=== PATIENT | female | born 1940 | race Caucasian/White ===

== ENCOUNTER → 2017-02-13 | Outpatient (CLI) | payer OTHER | LOC: CIMAGING 08:57 | PROVIDERS: ATTEND Internal Medicine | DX: Z12.31 Encounter for screening mammogram for malignant neoplasm of breast (principal) | CPT/HCPCS: G0202 ==

== ENCOUNTER → 2017-02-20 | Outpatient (CLI) | payer OTHER | LOC: CIMAGING 13:13 | DX: I71.6 Thoracoabdominal aortic aneurysm, without rupture (principal); Z95.828 Presence of other vascular implants and grafts | CPT/HCPCS: 71250-PO; 74176-PO ==

== ENCOUNTER → 2017-03-19 | Outpatient (CLI) | payer OTHER | LOC: CIMAGING 11:33 | PROVIDERS: ATTEND Internal Medicine | DX: R05 Cough (principal) | CPT/HCPCS: 71020; G0463 ==

== ENCOUNTER → 2017-03-25 | Outpatient (CLI) | payer OTHER | LOC: CIMAGING 16:38 | PROVIDERS: ATTEND Internal Medicine | DX: R05 Cough (principal); Z95.828 Presence of other vascular implants and grafts | CPT/HCPCS: 71020-PO; 80053-PO; 85025-PO; G0463-PO ==

== ENCOUNTER → 2017-06-05 | Outpatient (CLI) | payer OTHER | LOC: BHFA 09:30 | PROVIDERS: ATTEND Internal Medicine Cardiovascular Disease | DX: J44.9 Chronic obstructive pulmonary disease, unspecified (principal) ==

== ENCOUNTER → 2017-11-03 | Outpatient (CLI) | payer OTHER | LOC: CIMAGING 11:33 | PROVIDERS: ATTEND Internal Medicine | DX: J98.4 Other disorders of lung (principal); R53.1 Weakness; Z95.828 Presence of other vascular implants and grafts | CPT/HCPCS: 71046-PO ==

== ENCOUNTER → 2017-11-18 | Outpatient (CLI) | payer OTHER | LOC: CIMAGING 12:06 | PROVIDERS: ATTEND Internal Medicine | DX: N28.9 Disorder of kidney and ureter, unspecified (principal); N85.9 Noninflammatory disorder of uterus, unspecified | CPT/HCPCS: 76770-PO ==

== ENCOUNTER → 2017-12-10 | Outpatient (CLI) | payer OTHER | LOC: CIMAGING 13:23 | PROVIDERS: ATTEND Internal Medicine | DX: S80.12XA Contusion of left lower leg, initial encounter (principal); M53.3 Sacrococcygeal disorders, not elsewhere classified | CPT/HCPCS: 72192-PO; 73590-PO ==

== ENCOUNTER → 2018-06-09 | Outpatient (CLI) | payer OTHER | LOC: CIMAGING 10:28 | PROVIDERS: ATTEND Surgery | DX: K43.9 Ventral hernia without obstruction or gangrene (principal); I77.810 Thoracic aortic ectasia; Z95.828 Presence of other vascular implants and grafts | CPT/HCPCS: 74176-PO ==

== ENCOUNTER 2018-07-21 07:44 | Inpatient (IN) | payer OTHER ==
--- NOTE | 2018-07-20 10:23 | GHP ---
DATE OF ADMISSION: 07/21/2018 Paz is a 77-year-old female, well known to us after suffering wound infections after a thoracic a ortic aneurysm repair at an outside hospital. She had multiple surgeries with wound VACs and healing difficulties, and now she presents with 2 abdominal wall hernias. She has a small, but bothersome h ernia in her epigastrium, and a larger left lower quadrant hernia containing bowel, which is reducibl e. CT scan show both hernias as described above. Images were personally reviewed. The patient also says she has balance difficulties with a very weak core. She has been taking yoga f or 6 years to try to correct this. She denies problems with nausea, vomiting, diarrhea, constipation , or chronic cough. PAST MEDICAL HISTORY: Includes abdominal wall abscess, status post incision and drainage with multip le surgeries requiring wound VACs as described above, thoracic aneurysm repair, central hearing loss, COPD, depression, hyperparathyroidism, hypertension, kidney disease. MEDICATIONS: Include Advair Diskus, amlodipine, Anoro Ellipta inhaler, aspirin, atorvastatin, fluoxe willian, fluticasone, ipratropium, albuterol, Lasix, topical Lidoderm, metoprolol, Prilosec, tramadol, v itamin D3. ALLERGIES: Includes narcotics and tetanus vaccine. FAMILY MEDICAL HISTORY: Includes coronary artery disease. SOCIAL HISTORY: The patient drinks alcohol on occasion. Denies tobacco use. PHYSICAL EXAM: GENERAL: Reveals an alert and oriented, well-developed, well-nourished 77-year-old f emale in no acute distress. HEENT: Normocephalic, atraumatic. CHEST: Clear to auscultation bilate rally without wheezes, rhonchi, or rales. CARDIAC: Regular rate and rhythm without murmurs. ABDOME N: Soft with tender small hernia in the epigastrium. A large left lower quadrant hernia just below the level of the umbilicus. Both are soft. No overlying skin redness. Multiple well-healed, but di mpled and contracted scars. GENITAL: Exam deferred. EXTREMITIES: Warm without edema. NEURO: Sanjeev ssly intact. SKIN: Warm and dry. IMPRESSION: This is a 77-year-old female with a history of abdominal surgery and wound infections, n ow with 2 ventral hernias. PLAN: Plan is to proceed with open ventral hernia repair x2 with possible use of mesh. The more con cerning hernia for us is in the left lower quadrant as it contains bowel. The more bothersome hernia for Paz is in her epigastrium as it gives her pain. She asks us if hernia repair will help to s trengthen her core. This we cannot guarantee. Limitations were discussed. Hernia repair is unlikel y to help with her balance issues. /[id number]/MODL
[2018-07-21] MEDS ORDERED: ceFAZolin 2 GM/DEXTROSE 100 ML IV ONE (07:56)
[2018-07-21] MEDS ORDERED: LR 1,000 ML IV ONE (07:57)
[2018-07-21] MEDS ORDERED: NS 1,000 ML IV ONE (08:02)
[2018-07-21] MEDS ORDERED: BUPIVACAINE 0.5% 30 ML SDV ONE (08:23)
--- NOTE | 2018-07-21 08:24 | PDHPUP ---
History & Physical Update H&P update statement: This history and physical update is based on an assessment of the patient which was completed after admission or registration (within 24 hours), but prior to the surgery/procedure. H&P update: H&P reviewed & patient examined, no change in patient's condition since H&P completed
[2018-07-21] MEDS ORDERED: MIDAZOLAM 2 MG/2 ML VIAL IVP ONE (09:19)
--- NOTE | 2018-07-21 09:19 | PDANEPAE ---
ANE History of Present Illness here for open ventral hernia repair ANE Past Medical History - Cardiovascular History Hx Hypertension: Yes Hx Arrhythmias: No Hx Chest Pain: No Hx Coronary Artery / Peripheral Vascular Disease: No Hx CHF / Valvular Disease: No Hx Palpitations: No - Pulmonary History Hx COPD: Yes Hx Asthma/Reactive Airway Disease: No Hx Recent Upper Respiratory Infection: No Hx Oxygen in Use at Home: No Hx Sleep Apnea: No Sleep Apnea Screening Result - Last Documented: Negative Pulmonary History Comment: MILD COPD - Neurologic History Hx Cerebrovascular Accident: No Hx Seizures: No Hx Dementia: No - Endocrine History Hx Diabetes: No - Renal History Hx Renal Disorders: Yes Renal History Comment: CKD. ONE KIDNEY R - Liver History Hx Hepatic Disorders: No - Neurological & Psychiatric Hx Hx Neurological and Psychiatric Disorders: No Neurological / Psychiatric History Comment: ANXIETY. DEPRESSION - Cancer History Hx Cancer: Yes Cancer History Comment: BASAL & SQUAMOUS - Congenital Disorder History Hx Congenital Disorders: No - GI History Hx Gastrointestinal Disorders: Yes Gastrointestinal History Comment: GERD - Other Health History Other Health History: NEG - Chronic Pain History Chronic Pain: No - Surgical History Prior Surgeries: THORACIC AORTIC ANEURYSM REPAIR. POST OP INF - RIB RESECTIONS - REQUIRING X9 PROCEDURES TO I&D AND IMPLANT WOUND VACS. L SHOULDER SURGERY. C SECTION X2 ANE Review of Systems Review of systems is: negative Review of Systems: - Exercise capacity Exercise capacity: >=4 METS METS (RN): 4 METS ANE Patient History - Allergies Allergies/Adverse Reactions: Iodinated Contrast- Oral and IV Dye Allergy (Verified 07/21/18 08:17) "I only have 1 kidney" NARCOTICS Allergy (Uncoded 08/12/12 15:06) Vomiting - Home Medications Home medications: home medication list seen and reviewed Home Medications: Metoprolol Tartrate [Lopressor 25 mg (RX)] 12.5 mg PO BID 11/04/11 [Last Taken 07/21/18 05:30] Atorvastatin Calcium 06/07/16 [Last Taken 07/20/18] Amlodipine Besylate 07/09/18 [Last Taken 07/20/18] Aspirin 07/09/18 [Last Taken 1 Week Ago ~07/14/18] FLUoxetine 07/09/18 [Last Taken 07/21/18 05:30] Vit D3-Vit K/Berberine/Hops 07/09/18 [Last Taken 1 Week Ago ~07/14/18] Mucinex 07/21/18 [Last Taken 07/20/18] - NPO status NPO Status: no food or drink >8 hours NPO Since - Liquids (Date): 07/21/18 NPO Since - Liquids (Time): 06:00 NPO Since - Solids (Date): 07/20/18 NPO Since - Solids (Time): 19:00 - Smoking Hx Smoking Status: Current every day smoker ANE Labs/Vital Signs - Vital Signs Vital Signs: reviewed preoperatively; see RN documention for details Blood Pressure: 134/66 Heart Rate: 68 Respiratory Rate: 18 O2 Sat (%): 98 Height: 152.4 cm Weight: 64.864 kg ANE Physical Exam - Airway Neck exam: FROM Mallampati Score: Class 1 - Pulmonary Pulmonary: no respiratory distress - Cardiovascular Cardiovascular: regular rate and rhythym - ASA Status ASA Status: III ANE Anesthesia Plan Anesthesia Plan: general endotracheal anesthesia, epidural
[2018-07-21] MEDS ORDERED: MIDAZOLAM 2 MG/2 ML VIAL ONE (09:20)
[2018-07-21] MEDS ORDERED: PROPOFOL 200 MG/20 ML VIAL ONE (09:29)
--- NOTE | 2018-07-21 10:13 | PDANEPAE ---
ANE Past Medical History - Cardiovascular History Hx Hypertension: Yes Hx Arrhythmias: No Hx Chest Pain: No Hx Coronary Artery / Peripheral Vascular Disease: No Hx CHF / Valvular Disease: No Hx Palpitations: No - Pulmonary History Hx COPD: Yes Hx Asthma/Reactive Airway Disease: No Hx Recent Upper Respiratory Infection: No Hx Oxygen in Use at Home: No Hx Sleep Apnea: No Sleep Apnea Screening Result - Last Documented: Negative Pulmonary History Comment: MILD COPD - Neurologic History Hx Cerebrovascular Accident: No Hx Seizures: No Hx Dementia: No - Endocrine History Hx Diabetes: No - Renal History Hx Renal Disorders: Yes Renal History Comment: CKD. ONE KIDNEY R - Liver History Hx Hepatic Disorders: No - Neurological & Psychiatric Hx Hx Neurological and Psychiatric Disorders: No Neurological / Psychiatric History Comment: ANXIETY. DEPRESSION - Cancer History Hx Cancer: Yes Cancer History Comment: BASAL & SQUAMOUS - Congenital Disorder History Hx Congenital Disorders: No - GI History Hx Gastrointestinal Disorders: Yes Gastrointestinal History Comment: GERD - Other Health History Other Health History: NEG - Chronic Pain History Chronic Pain: No - Surgical History Prior Surgeries: THORACIC AORTIC ANEURYSM REPAIR. POST OP INF - RIB RESECTIONS - REQUIRING X9 PROCEDURES TO I&D AND IMPLANT WOUND VACS. L SHOULDER SURGERY. C SECTION X2 ANE Review of Systems Review of Systems: - Exercise capacity METS (RN): 4 METS ANE Patient History - Allergies Allergies/Adverse Reactions: Iodinated Contrast- Oral and IV Dye Allergy (Verified 07/21/18 08:17) "I only have 1 kidney" NARCOTICS Allergy (Uncoded 08/12/12 15:06) Vomiting - Home Medications Home Medications: Metoprolol Tartrate [Lopressor 25 mg (RX)] 12.5 mg PO BID 11/04/11 [Last Taken 07/21/18 05:30] Atorvastatin Calcium 06/07/16 [Last Taken 07/20/18] Amlodipine Besylate 07/09/18 [Last Taken 07/20/18] Aspirin 07/09/18 [Last Taken 1 Week Ago ~07/14/18] FLUoxetine 07/09/18 [Last Taken 07/21/18 05:30] Vit D3-Vit K/Berberine/Hops 07/09/18 [Last Taken 1 Week Ago ~07/14/18] Mucinex 07/21/18 [Last Taken 07/20/18] - NPO status NPO Since - Liquids (Date): 07/21/18 NPO Since - Liquids (Time): 06:00 NPO Since - Solids (Date): 07/20/18 NPO Since - Solids (Time): 19:00 - Smoking Hx Smoking Status: Current every day smoker ANE Labs/Vital Signs - Vital Signs Blood Pressure: 134/66 Heart Rate: 68 Respiratory Rate: 18 O2 Sat (%): 98 Height: 152.4 cm Weight: 64.864 kg
[2018-07-21] MEDS ORDERED: DEXAMETHASONE 4 MG/ML VIAL ONE ×2 (10:24→12:47)
[2018-07-21] MEDS ORDERED: ONDANSETRON 4 MG/2 ML VIAL ONE ×2 (10:24→12:33)
[2018-07-21] MEDS ORDERED: BUPIVACAINE 0.25% 30 ML SDV ONE (10:33)
[2018-07-21] MEDS ORDERED: fentaNYL 100 MCG/2 ML INJ ONE (10:43)
[2018-07-21] MEDS ORDERED: fentaNYL 100 MCG/2 ML INJ IVP PRN (10:46)
[2018-07-21] MEDS ORDERED: ONDANSETRON 4 MG/2 ML VIAL IVP PRN (10:46)
[2018-07-21] MEDS ORDERED: NS 500 ML IV PRN (10:46)
[2018-07-21] MEDS ORDERED: NALOXONE HCL 0.4 MG/ML INJ IVP PRN ×2 (10:46→11:30)
[2018-07-21] MEDS ORDERED: LABETALOL HCL 5 MG/ML 20 ML MDV IVP PRN (10:46)
[2018-07-21] MEDS ORDERED: ALBUTEROL 3 ML DEYVIAL IH PRN (10:46)
[2018-07-21] MEDS ORDERED: LR 500 ML IV PRN (10:46)
[2018-07-21] MEDS ORDERED: DEXAMETHASONE 4 MG/ML VIAL IVP PRN (10:46)
[2018-07-21] MEDS ORDERED: HYDROmorphONE/DILAUDID 2 MG/ML INJ IVP PRN (10:46)
[2018-07-21] MEDS ORDERED: SUGAMMADEX SODIUM 200 MG/2 ML VIAL IVP ONE (11:40)
[2018-07-21] MEDS: fentaNYL 2MCG/ML/BUP 0.1% RTU 100 ML EP SCH (12:16)
--- NOTE | 2018-07-21 13:56 | POSTOPPROG ---
Post Op Note Date of Operation: 07/21/18 Surgeon: Kali Jackman Supervisor Computer Operations: Shayy Weston Anesthesiologist: Tio Temple Anesthesia: Epidural, GET(General Endotracheal) Pre-op Diagnosis: VH x 2 Post-op Diagnosis: same, with generally attenuated fascia Procedure: epigastric and LLQ VH repairs c mesh Findings: 12 cm LLQ defect, 8 cm epigastric defect Inf/Abcess present in the surg proc area at time of surgery?: No EBL: Minimal Complications: none Drains: Porfirio Wright (x2) Specimen(s): hernia sac
--- NOTE | 2018-07-21 16:14 | POSTANESTH ---
Post Anesthetic Evaluation Cardiovascular Status: Normal, Stable Respiratory Status: Normal, Stable Level of Consciousness/Mental Status: Can Participate in Eval Pain Control: Adequate, Prn Tx Ordered Nausea/Vomiting Control: Adequate, Prn Tx Ordered Complications Possibly Related to Anesthesia: None Noted
--- NOTE | 2018-07-21 17:18 | PDMN ---
Medical Necessity Medical necessity: Pt meets IP criteria as of 07/21/2018 per and [facility] [place] [id number] ( Hernia Repair); est los > 2 mn s/p open ventral hernia repair x 2 in a pt with hx of multiple surgeries requiring wound vac d/t healing difficulties; comorbid advanced age, COPD, thoracic aneurysm repair, depression, HTN, and kidney disease.
[2018-07-21] MEDS: ONDANSETRON 4 MG/2 ML VIAL IVP PRN (21:07)
[2018-07-22] MEDS: fentaNYL 2MCG/ML/BUP 0.1% RTU 100 ML EP SCH (03:03)
[2018-07-22] MEDS: DC NARCS MISC SCH (08:40)
[2018-07-22] MEDS: REGARDING ANTICOAG MISC SCH (08:41)
--- NOTE | 2018-07-22 10:06 | SOAPPROG ---
SOAP Progress Note Assessment/Plan: Assessment/Plan: 77 Y F s/p ventral hernia repairs x 2. POD#1. Thoracic epidural working well. Would keep it another day but defer to anesthesia. Patient has narcotic intolerance. Will be on tylenol alone after epiduural removal. Single kidney. Cr 1.6 today. Slight elevation from baseline of 1.3-1.5. Will add low volume IVF back and repeat tomorrow. Regular diet. D/c mreino. OOB. PT/OT. Dispo: pending. likely in next 1-2 days. S: no pain. says she hasn't been oob. had nausea yesterday but better today. "I' m doing 100% better than I thought I would from this surgery." O: alert, nad ctab rrr abd soft, wounds well dressed. 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
[2018-07-22] MEDS: NS 1,000 ML IV SCH (10:37)
--- NOTE | 2018-07-22 12:30 | PDPAINCON ---
Pain Management Consultation Patient referred by : Gasper - Subjective Pain is: under control Side effects include: nausea/vomiting Activity: out of bed with assistance - Objective Technique: continuous epidural Site: thoracic Continuous infusion: bupivicaine (+ fentanyl) Catheter site: clean, dry, intact, no erythema/edema/exudate Sensory and motor exam: dermatomal level (Narrow band T6-8 bilaterally) Vital signs: stable - Assessment/Plan Assessment/Plan: change infusion rate (Increased rate to 8 ml/hr with 2 ml bolus , 15 min lockout, max 2 bolus/hr. This will hopefully increase dermatome band and provide better pain control.)
[2018-07-22] MEDS ORDERED: ALBUTEROL 60 PUFFS/8 GM MDI IH PRN (12:39)
[2018-07-22] MEDS: ONDANSETRON 4 MG/2 ML VIAL IVP PRN (14:30)
--- NOTE | 2018-07-22 16:13 | ASMTCMCOM ---
CM Note CM Note Notes: Pt admitted for scheduled hernia surgery, pt normally independent and goes to yoga. She does have some balance issues at baseline. Pt lives at home w/her , PT/OT to eval. DC Plan: TBD Date Signed: 07/22/2018 04:12 PM Electronically Signed By:Dana Cr RN
[2018-07-22] MEDS: guaiFENesin 600 MG TAB.ER PO SCH ×2 (16:47→21:17)
[2018-07-22] MEDS: FLUoxetine 20 MG CAP PO SCH (16:47)
[2018-07-22] MEDS: CHOLECALCIFEROL VIT D3 1,000 UNITS TAB PO SCH (16:47)
[2018-07-22] MEDS: METOPROLOL TARTRATE 25 MG TAB PO SCH ×2 (16:48→21:17)
[2018-07-22] MEDS ORDERED: PROMETHAZINE HCL 25 MG/ML INJ ONE (17:08)
[2018-07-22] MEDS: ATORVASTATIN CALCIUM 20 MG TAB PO SCH (21:17)
[2018-07-23] MEDS: ACETAMINOPHEN 325 MG TAB PO PRN ×2 (01:42→18:47)
--- NOTE | 2018-07-23 05:22 | GOP ---
DATE OF OPERATION: 07/21/2018 SURGEON: Kali Jackman MD BACKREST ASSEMBLER: TATYANA Dc ANESTHESIOLOGIST: Dr. Jessica South PREOPERATIVE DIAGNOSIS: Symptomatic ventral hernias x2. POSTOPERATIVE DIAGNOSIS: Symptomatic ventral hernias x2. PROCEDURE PERFORMED: Ventral hernia repair x2 with mesh. FINDINGS: The patient was found have a large left lower quadrant ventral hernia defect with markedly attenuated fascia. This measured approximately 8 cm in diameter. Second defect was in the right up per quadrant and measured 5 cm in diameter. ESTIMATED BLOOD LOSS: Less than 25 cc. DESCRIPTION OF PROCEDURE: The patient was taken to the operating room, where she received satisfacto ry general endotracheal anesthesia. She was placed in supine position, prepped and draped in usual s terile fashion. Two separate transverse incision was made over the hernia defects. Dissection extended down carefull y through the subcutaneous tissue. The hernia sacs were dissected free from surrounding subcutaneous tissue and dissected back down to the fascial level. The sacs were opened and the contents were red uced. In the right upper quadrant hernia defect, the abdomen was not entered, but a subfascial space was created as was done on the lower abdominal incision. Covidien ProGrip composite mesh was placed subfascially and anchored around the periphery of both lesions with 0 Ethibond mattress sutures. Th e defect, itself, was then closed directly with 0 Ethibond [id number] sutures. Wounds were infi ltrated with 0.5% Marcaine. Both wounds were drained with 15 round silicone COOKIE drains, which were se cured to the skin with 3-0 silk sutures. Wounds were infiltrated with Marcaine and closed in layers using 2-0 Vicryl for the subcutaneous tissue and skin miriam for the skin. She tolerated the proced ure quite well. COMPLICATIONS: No complications /[id number]/MODL
[2018-07-23] MEDS: NS 1,000 ML IV SCH ×2 (05:57→18:00)
[2018-07-23] MEDS: guaiFENesin 600 MG TAB.ER PO SCH ×2 (07:36→20:27)
[2018-07-23] MEDS: CHOLECALCIFEROL VIT D3 1,000 UNITS TAB PO SCH (07:36)
[2018-07-23] MEDS: METOPROLOL TARTRATE 25 MG TAB PO SCH ×2 (07:36→20:27)
[2018-07-23] MEDS: BUPIVACAINE 0.5% EP SCH ×2 (07:37→23:17)
[2018-07-23] MEDS: FLUoxetine 20 MG CAP PO SCH (07:37)
[2018-07-23] MEDS: NS EP SCH ×2 (07:37→23:17)
[2018-07-23] MEDS: REGARDING ANTICOAG MISC SCH (10:36)
[2018-07-23] MEDS: DC NARCS MISC SCH (10:36)
--- NOTE | 2018-07-23 11:36 | SOAPPROG ---
SOAP Progress Note Assessment/Plan: Assessment: 77 Y F s/p ventral hernia repairs x 2. POD#2 Single kidney: Cr continues to be above baseline at 1.6. Increase fluids to 100cc/hr. Increase oral fluid intake. Thoracic epidural for pain control. Keep in one more day, as pt can only take Tylenol after it is pulled. Continue PT/OT and ambulation. Pull R abdomen COOKIE drain. S: doing much better than yesterday. No vomiting since yesterday. Tolerating a regular diet and passing gas. No BM yet. Pain well controlled with epidural , although she does still endorse some pain. O: Alert Afebrile VSS RRR CTAB, no increased WOB Abdomen: soft, appropriately ttp, R COOKIE drain with no drainage, L COOKIE with minimal serosang drainage, normoactive BS, incisions well dressed. 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
--- NOTE | 2018-07-23 13:26 | PDPAINCON ---
Pain Management Consultation Patient referred by : Gasper - Subjective Pain at rest (/10): 2 Pain with activity (/10): 8 Pain is: low, well controlled (Except with coughing) Side effects include: nausea (Pt had severe nausea yesterday. Much better today since Fentanyl was removed from epidural infusion.) Activity: able to ambulate - Objective Technique: continuous epidural Continuous infusion: bupivicaine Continuous rate (ml/hr): 6 Bolus (ml): 0 Catheter site: clean, dry, intact, no erythema/edema/exudate Sensory and motor exam: consistent with block Vital signs: stable - Assessment/Plan Assessment/Plan: change infusion rate Additional comments: Added 2mL bolus q 10 min so pt can assist herself with controlling pain with cough and motion. Pain very well controlled at rest. Anticipating a trial of turning the infusion off this weekend to assess pain level with no epidural.
--- NOTE | 2018-07-23 15:04 | ASMTCMCOM ---
CM Note CM Note Notes: Reviewed therapies, pt cleared for home by PT and OT. Anticipate she will dc w/support of when medically stable. CM available for any changes. DC Plan: Independent Date Signed: 07/23/2018 03:03 PM Electronically Signed By:Dana Cr RN
[2018-07-23] MEDS: ALBUTEROL 3 ML DEYVIAL IH PRN ×2 (16:38→20:11)
[2018-07-23] MEDS: ATORVASTATIN CALCIUM 20 MG TAB PO SCH (20:27)
[2018-07-23] MEDS: FLUTICASONE IH SCH (21:14)
[2018-07-23] MEDS: SALMETEROL IH SCH (21:14)
[2018-07-24] MEDS: NS 1,000 ML IV SCH ×2 (03:59→13:58)
[2018-07-24] MEDS: METOPROLOL TARTRATE 25 MG TAB PO SCH ×2 (08:18→21:09)
[2018-07-24] MEDS: FLUoxetine 20 MG CAP PO SCH (08:18)
[2018-07-24] MEDS: CHOLECALCIFEROL VIT D3 1,000 UNITS TAB PO SCH (08:18)
[2018-07-24] MEDS: guaiFENesin 600 MG TAB.ER PO SCH ×2 (08:18→21:09)
[2018-07-24] MEDS: ACETAMINOPHEN 325 MG TAB PO PRN (08:26)
[2018-07-24] MEDS ORDERED: HYDROmorphONE/DILAUDID 1 MG/ML INJ IVP PRN (09:03)
--- NOTE | 2018-07-24 09:03 | SOAPPROG ---
SOAP Progress Note Assessment/Plan: Assessment: 77 Y F s/p ventral hernia repairs x 2. POD#2 Single kidney: Cr continues to be above baseline at 1.6. Increase fluids to 100cc/hr. Increase oral fluid intake. Thoracic epidural for pain control. Pull today. Will order iv Dilaudid for pain control. Continue PT/OT and ambulation. Continue COOKIE drains Dispo pending clinical course. Likely over the weekend. S: Continuing to improve. Had BM and passing gas. Incision sites tender. O: Alert Afebrile VSS RRR CTAB, no increased WOB Abdomen: soft, appropriately ttp, COOKIE drains with minimal serosang drainage, normoactive BS, incisions well dressed. 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
[2018-07-24] MEDS: REGARDING ANTICOAG MISC SCH (11:31)
[2018-07-24] MEDS: DC NARCS MISC SCH (11:31)
--- NOTE | 2018-07-24 12:23 | PDPAINCON ---
Pain Management Consultation Patient referred by : Gasper - Subjective Pain at rest (/10): 0 Pain with activity (/10): 4 Pain is: low, well controlled Activity: able to ambulate, out of bed with assistance - Objective Technique: continuous epidural Site: thoracic Continuous infusion: bupivicaine Continuous rate (ml/hr): 6 Bolus (ml): 2 Lockout interval (mins): 10 Catheter site: clean, dry, intact (some dried sanguinous fluid under dressing, probably from cath insertion) Sensory and motor exam: consistent with block (T9-T12 - some of the skin incisions are above level of the block, but pain still minimal per pt. ) - Assessment/Plan Assessment/Plan: other (Will hold infusion tomorrow morning at 8 AM for a trial of pain management without epidural. If successful will pull epidural catheter tomorrow late morning - early afternoon.)
[2018-07-24] MEDS: BUPIVACAINE 0.5% EP SCH (12:40)
[2018-07-24] MEDS: NS EP SCH (12:40)
[2018-07-24] MEDS: ALBUTEROL 3 ML DEYVIAL IH PRN (16:24)
[2018-07-24] MEDS: SALMETEROL IH SCH (20:11)
[2018-07-24] MEDS: FLUTICASONE IH SCH (20:11)
[2018-07-24] MEDS: ATORVASTATIN CALCIUM 20 MG TAB PO SCH (21:09)
[2018-07-25] MEDS: NS EP SCH (01:27)
[2018-07-25] MEDS: BUPIVACAINE 0.5% EP SCH (01:27)
[2018-07-25] MEDS: ONDANSETRON 4 MG/2 ML VIAL IVP PRN (07:08)
[2018-07-25] MEDS ORDERED: FUROSEMIDE 20 MG/2 ML VIAL IVP ONE (07:43)
[2018-07-25] MEDS: ALBUTEROL 3 ML DEYVIAL IH PRN (07:43)
[2018-07-25] MEDS ORDERED: IOPAMIDOL (ISOVUE 370) 100 ML BTL IV ONE (07:48)
[2018-07-25] MEDS ORDERED: PROMETHAZINE HCL 25 MG/ML INJ IVP PRN (08:39)
[2018-07-25] MEDS ORDERED: ONDANSETRON 4 MG/2 ML VIAL IVP ONE (09:01)
[2018-07-25] MEDS ORDERED: FUROSEMIDE 40 MG/4 ML VIAL IVP ONE (09:16)
--- NOTE | 2018-07-25 09:30 | PDHOSCONS ---
History and Physical - Chief Complaint SOB, confusion - History of Present Illness 77 yo female with h/o recent thoracic aortic aneurysm repair admitted for elective abdominal hernia repair, decompensated on post-op day 3 with tachypnea , SOB, increased O2 requirement and respiratory distress. History Information - Allergies/Home Medication List Allergies/Adverse Reactions: Iodinated Contrast- Oral and IV Dye Allergy (Verified 07/21/18 08:17) "I only have 1 kidney" NARCOTICS Allergy (Uncoded 08/12/12 15:06) Vomiting Home Medications: Metoprolol Tartrate [Lopressor 25 mg (RX)] 12.5 mg PO BID 11/04/11 [Last Taken 07/21/18 05:30] Atorvastatin Calcium [Lipitor 20 mg (*)] 20 mg PO HS 06/07/16 [Last Taken ] Aspirin [Aspirin 81mg (*)] 81 mg PO DAILY 07/09/18 [Last Taken 1 Week Ago ~07/14] Cholecalciferol Vit D3 [Vitamin D3 (*)] 1,000 units PO DAILY 07/09/18 [Last Taken 1 Week Ago ~07/14/18] FLUoxetine [Prozac 20 MG (*)] 20 mg PO DAILY 07/09/18 [Last Taken 07/21/18 05:30 ] amLODIPine BESYLATE [Norvasc 2.5 mg (*)] 2.5 mg PO DAILY 07/09/18 [Last Taken ] Albuterol [Proventil Inhaler HFA (*)] 1 - 2 puffs IH Q4H PRN 07/21/18 [Last Taken 07/20/18] guaiFENesin [Mucinex 600 MG (*)] 600 mg PO BID 07/21/18 [Last Taken 07/20/18] Seretide 50mcg/250mcg 1 puffs IH HS 07/23/18 [Last Taken Unknown] I have personally reviewed and updated: family history, medical history, social history, surgical history - Social History Smoking Status: Current every day smoker Review of Systems Review of Systems: ROS: 10pt was reviewed & negative except for what was stated in HPI & below Physical Exam Physical Exam: Temp Pulse Resp BP Pulse Ox 36.6 C 84 36 H 182/81 H 95 07/25/18 07:26 07/25/18 07:46 07/25/18 07:46 07/25/18 07:36 07/25/18 07:46 O2 (L/minute) 10 Constitutional: no apparent distress Eyes: PERRL Ears, Nose, Mouth, Throat: moist mucous membranes Cardiovascular: JVD, tachycardia Respiratory: no respiratory distress, reduced air movement, expiratory wheeze, inspiratory crackles Skin: warm Musculoskeletal: full muscle strength Psychiatric: encephalopathic Lab Data & Imaging Review 07/25/18 09:35 07/25/18 09:35 Hgb 12.8 g/dL (12.6-16.3) 07/22/18 04:45 Hct 40.8 % (38.0-47.0) 07/22/18 04:45 Sodium 139 mEq/L (135-145) 07/25/18 04:26 Potassium 4.6 mEq/L (3.5-5.2) 07/25/18 04:26 Chloride 115 mEq/L (97-110) H 07/25/18 04:26 Carbon Dioxide 19 mEq/l (22-31) L 07/25/18 04:26 Anion Gap 5 mEq/L (6-14) L 07/25/18 04:26 BUN 22 mg/dL (7-23) 07/25/18 04:26 Creatinine 1.2 mg/dL (0.6-1.0) H 07/25/18 04:26 Estimated GFR 43 07/25/18 04:26 Glucose 97 mg/dL (70-100) 07/25/18 04:26 Calcium 9.2 mg/dL (8.5-10.4) 07/25/18 04:26 Assessment & Plan Assessment: Acute hypoxemic and hypercarbic respiratory failure - S/P IV Lasix 20 mg, repeat 40 mg IV given during STAT team call. CTA neg for PE, b/l pleural effusions with RLL consolidation per radiology read -STAT ABG (pH 7.09, pCO2 73), started bipap, repeat ABG in 1 hr -ekg with RBBB, unclear if new -STAT echo to evaluate LV function; EF 69%, mild MR, grade 1 diastolic dysfunction -send trop (neg), bnp (10K), cbc, cmp -transfer to ICU, may require urgent intubation, but hopefully can turn around with bipap Presumed HCAP - RLL consolidation on CT. Afebrile, but wbc's elevated. -start Zosyn Pleural effusion - R>L, query parapneumonic effusion vs HF with asymmetric effusions -consider thoracentesis if clinically worsens COPD - seems stable, could be contributing to above -cont home inhalers S/P abdominal wall hernia repair x2 - POD #3 -surgery following H/O thoracic aortic aneurysm repair Full code Dispo - cont inpt, transfer to ICU for bipap, management of acute respiratory failure. 45 minutes critical care.
[2018-07-25 09:45] LABS: PLATELET COUNT 166 10^3/uL (150-400)
[2018-07-25] MEDS ORDERED: PIPERACILLIN/TAZO 3.375 GM/DEX 50 ML IV SCH (10:00)
[2018-07-25] MEDS: REGARDING ANTICOAG MISC SCH (10:09)
[2018-07-25] MEDS: DC NARCS MISC SCH (10:09)
[2018-07-25] MEDS: FLUoxetine 20 MG CAP PO SCH (10:09)
[2018-07-25] MEDS: guaiFENesin 600 MG TAB.ER PO SCH ×2 (10:09→20:54)
[2018-07-25] MEDS: CHOLECALCIFEROL VIT D3 1,000 UNITS TAB PO SCH (10:09)
[2018-07-25] MEDS: METOPROLOL TARTRATE 25 MG TAB PO SCH ×2 (10:10→20:53)
--- NOTE | 2018-07-25 10:36 | SOAPPROG ---
SOAP Progress Note Assessment/Plan: Assessment: 77 Y F s/p ventral hernia repairs x 2. POD#3 Complex history of repair of thoracic aneurysm with multiple infections, requiring wound vacs Single kidney: Cr 1.2 today. Fluids were increased due to elevated cr and had acute decompensations this am Tachycardic, tachypnic and diaphoretic CTA negative for PE Large right pleural effusion with atelectasis and possible consolidation Transferred to ICU - appreciate hospitalists Acidotic On bipap Can consider tapping effusion, possible bronch and abx Continue PT/OT and ambulation. Continue COKOIE drains S: Sudden decompensation. GI garcia stable but respiratory decline O: Very tired and tachypneic Tachycardic Rales, increased work of breathing Abdomen: soft, appropriately ttp, COOKIE drains with minimal serosang drainage, normoactive BS, incisions well dressed. 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
--- NOTE | 2018-07-25 11:30 | PDPAINCON ---
Pain Management Consultation Patient referred by : Gasper - Subjective Pain at rest (/10): 0 Pain with activity (/10): 2 Pain is: no pain at all - Objective Sensory and motor exam: block has resolved, no apparent ill effects Vital signs: stable Additional comments: Rapid Response this AM for what sounds like volume overload respitory distress. - Assessment/Plan Assessment/Plan: other (Epidural was turned off for 5hrs and patient is not complaining of pain, can pull herself to seated and states it's "a little tender " both otherwise says she has no pain.)
--- NOTE | 2018-07-25 13:05 | ECHO ---
[email or web address] [address] Main: [phone] Fax: Transthoracic Echocardiogram Name: ZOFIA OROURKE MR#: [id number] Study Date: 07/25/2018 Study Time: 12:09 PM Date of : 1940 Age: 77 year(s) Height: 152.4 cm (60 in.) Weight: 64.86 kg (143 lb.) BSA: 1.62 m2 Gender: Female Examination: Echo Indication: Acute Hypoxia, BiPAP Image Quality: Contrast: Requested by: Veronica Jo BP: 134 mmHg/53 mmHg Heart Rate: Rhythm: Normal sinus rhythm Indication: Acute Hypoxia, BiPAP Procedure Staff Plant Guide: Maycol Serrano RDCS Reading Physician: Messi Fitzpatrick MD Requesting Provider: Conclusions: Normal size left ventricle. No LV hypertrophy. Normal global systolic LV function. EF is 69 %. No regional wall motion abnormality. Grade 1 diastolic dysfunction (abnormal relaxation). Trivial to mild mitral regurgitation. The aortic valve is tri-leaflet. Mild aortic valve regurgitation is present. The tricuspid valve appears normal. Mild tricuspid regurgitation is present. The pulmonic valve is normal in appearance and function. No pericardial effusion. Measurements: Chambers Valvular Assessment AV/MV Valvular Assessment TV/PV Normal Normal Normal Name Value Range Name Value Range Name Value Range Ao Jacqui (MM): 3.1 cm (2.2 cm-3.7 AV Vmax: 1.41 m/s (1 m/s-1.7 TR Vmax: 3.52 mm/s ( - ) cm) m/s) TR PGmax: 50 mmHg ( - ) IVSd (2D): 0.9 cm (0.6 cm-1.1 AV maxP mmHg ( - ) syst. PAP: 55 mmHg ( - ) cm) LVOT Vmax: 0.84 m/s (0.7 m/s-1.1 PV Vmax: 1.05 m/s (0.6 m/s-0.9 LVDd (2D): 4.0 cm (3.9 cm-5.3 m/s) m/s) cm) AR (PHT): 699 ms ( - ) PV PGmax: 4 mmHg ( - ) LVDs (2D): 2.5 cm (2.1 cm-4 MV E Vmax: 1.19 m/s ( - ) cm) MV A Vmax: 1.26 m/s ( - ) LVPWd (2D): 0.8 cm ( - ) MV E/A: 0.94 ( - ) LVEF (2D): 69 (>=54 %) Continued Measurements: Patient: ZOFIA OROURKE Study Date: 07/25/2018 Page 1 of 2 12:09 PM Chambers Valvular Assessment AV/MV Valvular Assessment TV/PV Name Value Name Value Name Value LADs Lon.5 cm MV E' Septal: 0.04 m/s CVP (est.): 5 mmHg LA Area: 14.3 cm2 MV E/E' Septal: 31.30 LA Volume: 30 ml MV E/E' Lateral: 29.10 LA Volume Index: 18.5 ml/m2 AR Vmax: 3.40 cm/s Findings: Left Ventricle: Normal size left ventricle. No LV hypertrophy. Normal global systolic LV function. EF is 69 %. No regional wall motion abnormality. Grade 1 diastolic dysfunction (abnormal relaxation). Right Ventricle: Normal size right ventricle. Normal RV function. Left Atrium: The left atrium is normal in size. Right Atrium: The right atrium is normal in size. Mitral Valve: The mitral valve is normal in appearance. Trivial to mild mitral regurgitation. Aortic Valve: The aortic valve is tri-leaflet. Mild aortic valve regurgitation is present. Tricuspid Valve: The tricuspid valve appears normal. Mild tricuspid regurgitation is present. The pulmonary artery pressure is moderately increased. Pulmonic Valve: The pulmonic valve is normal in appearance and function. Aorta: The aorta is normal. Pericardium: No pericardial effusion. (No Signature Object) Patient: ZOFIA OROURKE Study Date: 07/25/2018 Page 2 of 2 12:09 PM [id number]
--- NOTE | 2018-07-25 13:24 | GCON ---
CRITICAL CARE CONSULTATION DATE OF CONSULTATION: 07/25/2018 HPI: This patient is a 77-year-old female who has a remote thoracic aortic aneurysm repaired, who bran s had difficulty since then with recurrent abdominal wall abscesses requiring multiple surgeries in t he past, as well as development of a hernia. She was admitted on 07/20/2018, for hernia repair. The surgery itself was uncomplicated, and over the next several days, she seemed to be doing quite well in terms of pain control with an epidural consisting of bupivacaine and fentanyl. Her dose had to be increased on the , but that made her sick to her stomach, and the fentanyl was discontinued. Sh jessica continued on that up until this morning but seemed to be doing quite well. At around 0700, linda renner to nurse's notes, a bedside handoff was being performed. The patient started having dry heaves, b ecame very short of breath, increased respiratory rate, and increased blood pressures. Was given Zof ran. A 10 L face mask was placed, and she was then given Lasix at [address] scan looking for a pulmonary embolism. The CT scan showed atelectasis of the right lower lobe and bilateral smal r-ln-briyntdg effusions, but no pulmonary embolism. She returned to the floor but continued to look poorly, and a stat team was called. An arterial blood gas at the time showed a pH 7.09 with a pCO2 o f 63, pO2 of 68, bicarb 21, and sat of 88%. She was brought to the intensive care unit and placed on BiPAP at that time. Labs were drawn showing a white count of 13.3, but a negative troponin and nega tive procalcitonin. A repeat blood gas showed improvement, with CO2 dropping rapidly and the pH impr oving as well. She was taken off BiPAP and placed on a nasal cannula and appeared to be doing quite well. She was not so sure of exactly what happened, other than she did recall feeling sick to her st omach and having dry heaves. She has not had CO2 retention in the past. It is not known if she has sleep apnea. She does have some mild snoring but no excess daytime somnolence or frequent awakening. She did say that she has been having a cough that has been nonproductive, and she has been afebrile . This is the first white count that has been checked during this hospitalization. REVIEW OF SYSTEMS: Otherwise negative. PAST MEDICAL HISTORY: Includes: 1. Abdominal wall abscesses in the past. 2. Thoracic aortic aneurysm. 3. Hernias. 4. Hard of hearing. 5. COPD with an FEV1 of 68% predicted. 6. Depression. 7. Hyperparathyroidism. 8. Chronic kidney disease. 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 9. Hypertension. 10. Vitamin D deficiency. SURGERIES: She has had multiple abdominal surgeries in the past, as well as incision and drainage, a nd her thoracic aortic aneurysm repair in 2011. SOCIAL HISTORY: She is an ongoing smoker. Very little alcohol. FAMILY HISTORY: Includes coronary artery disease. MEDICATIONS: Were reviewed in some detail today. These include albuterol, Tylenol, Norvasc, Lipitor , vitamin D, Prozac, Mucinex, Lopressor, Zofran, Phenergan. She was getting bupivacaine as an epidur al. At one point, fentanyl was in that, but that was discontinued. I see no other narcotics that erin lopez has received. Dilaudid was written for p.r.n. the other day, but the MAR does not reflect any bein g given since that time. PHYSICAL EXAM: VITAL SIGNS: At the time of my initial evaluation, she had a normal blood pressure. Heart rate was 89, respirations 24, oxygen saturation 97% on BiPAP at 20/8 and 50% FiO2. GENERAL: She did open her eyes and follow some commands, but we were unable have a conversation until later in the morning. She was not tachypneic at that time. Her pupils are equally round, reactive to light, nonicteric and noninjected. NECK: Supple without adenopathy. I did not detect jugular vein disten tion, but that was reported earlier in the day, and she had been given a total of 60 mg of Lasix by t he time I saw her. LUNGS: Breath sounds were equal bilaterally without wheezing. That also was rep orted earlier. HEART: Had a regular rate and rhythm without murmurs, rubs, gallops. ABDOMEN: Appe ared to be soft and nontender with hypoactive bowel sounds. EXTREMITIES: Show no clubbing, cyanosis , or edema. NEUROLOGIC: Nonfocal, including cranial nerves, deep tendon reflexes. SKIN: Was warm and dry without evidence of rash. OBJECTIVE DATA: Includes the CT scan, as described above with right lower lobe atelectasis, no pulmo nary embolism, and bilateral effusions. White count was 13.39, hematocrit 44, platelets 166. Blood gas is as described above as well. Basic metabolic panel is fairly unremarkable and shows an anion g ap of 8, creatinine of 1.22. BNP was 10,000. Procalcitonin was 0.04. Troponin was negative. ASSESSMENT/PLAN: 1. Acute respiratory failure with hypercapnia and need for mechanical ventilation. Bilevel positive airway pressure managed to fix things quite quickly, and she got a lot better with very little inter vention. I do not think the Lasix changed anything. The etiology here is uncertain, though respirat ory depression is a potential side effect of bupivacaine, though usually at higher levels than she bran d. There are no narcotics to point to in this situation. I do not think this is an acute chronic ob structive pulmonary disease exacerbation. Potentially, if she has limited respiratory reserve with a n FEV1 of 68%, that there is pneumonia there, but that would have to be more likely viral in nature s quinn the procalcitonin was low. She had a dose of Zosyn this morning. I discontinued that now. I t hink my leading theory is this is the side effect of her bupivacaine, which has been discontinued. I nterestingly, this was also discontinued when she was having this episode this morning, though that w as planned. I do not think it is an acute coronary event either or mechanical obstruction or mucus p lugging. Sleep apnea is a distant possibility, but I do not think that is likely at this time. In a ny case, we will keep her in the intensive care unit, watch her closely, and see that she maintains b oth her airway, as well as her cognition and respiratory status. 2. Chronic obstructive pulmonary disease. As I said, I do not believe this is a chronic obstructive pulmonary disease exacerbation. She has been getting Advair. I do not think she needs steroids at this time or additional antibiotics. 3. Hernia repair. This appears to be stable at this time. I would defer to surgery for further man agement. 4. Chronic kidney disease. She does have a functioning solitary kidney. Her creatinine was up high er earlier in her hospitalization. She was given both Lasix and intravenous contrast today. I will have to watch this closely, but I do not think further diuretics would be warranted at this time [facility] e I do not see evidence of true congestive heart failure despite the BNP of 10,000. We will continue to watch closely. Total critical care time was about 45 minutes. /[id number]/MODL
--- NOTE | 2018-07-25 15:58 | ASMTCMCOM ---
CM Note CM Note Notes: Patient had a STAT team call this am and was transferred to the ICU. Pt lives at home with her , prior to transfer, CM anticipated that pt would dc home independent. I believe PT will see pt again, for reeval. DC Plan: TBD Date Signed: 07/25/2018 03:57 PM Electronically Signed By:Dana Cr RN
[2018-07-25] MEDS: ACETAMINOPHEN 325 MG TAB PO PRN (17:02)
[2018-07-25] MEDS: FLUTICASONE IH SCH (20:10)
[2018-07-25] MEDS: SALMETEROL IH SCH (20:10)
[2018-07-25] MEDS: ATORVASTATIN CALCIUM 20 MG TAB PO SCH (20:54)
[2018-07-26 06:41] LABS: PLATELET COUNT 139 10^3/uL (150-400)
[2018-07-26] MEDS: guaiFENesin 600 MG TAB.ER PO SCH ×2 (09:35→20:23)
[2018-07-26] MEDS: CHOLECALCIFEROL VIT D3 1,000 UNITS TAB PO SCH (09:36)
[2018-07-26] MEDS: FLUoxetine 20 MG CAP PO SCH (09:37)
[2018-07-26] MEDS: METOPROLOL TARTRATE 25 MG TAB PO SCH ×2 (09:40→20:23)
--- NOTE | 2018-07-26 11:49 | SOAPPROG ---
SOAP Progress Note Assessment/Plan: Assessment: 77 Y F s/p ventral hernia repairs x 2. POD#4 Complex history of repair of thoracic aneurysm with multiple infections, requiring wound vacs Single kidney: Cr 1.4 today. Much better today Acidosis resolved. CTA negative for PE Large right pleural effusion with atelectasis and possible consolidation Continue PT/OT and ambulation. Continue COOKIE drains S: Much improved today. Now on NC O: Sitting in bed, at bedside Tachycardic Rales, increased work of breathing Abdomen: soft, appropriately ttp, COOKIE drains with minimal serosang drainage, normoactive BS, incisions well dressed. 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
--- NOTE | 2018-07-26 12:03 | HOSPPROG ---
Hospitalist Progress Note Assessment/Plan: Acute hypoxemic and hypercarbic respiratory failure - Had pH 7.09 with pCO2 78. S/P IV Lasix given during STAT team call yest. CTA neg for PE, b/l pleural effusions noted. Respiratory acidosis resolved s/p bipap. Echo showed EF 69%, mild MR, grade 1 diastolic dysfunction. BNP elevated. PCT low, thus doubt bacterial process. Unclear what triggered this event, ?side effect from bupivacaine in epidural vs volume overload (had been on IVF's for several days) , but now improved, on 4 LPM NC. -atbx d/c'd, monitor -wean O2 as able Pleural effusions - R>L, may be related to recent surgery vs HF with asymmetric effusions -defer lasix today with rising Cr COPD - seems stable, no indication for steroids -cont home inhalers CKD - Baseline Cr 1.3-1.5. Cr down to 1.2 here --> 1.4 after Lasix yest. She has solitary kidney. -monitor S/P abdominal wall hernia repair x2 - POD #4 -surgery following H/O thoracic aortic aneurysm repair Full code Dispo - cont inpt, d/c angelique, transfer back to med/surg Subjective: Pt feels much better. Breathing improved. No CP or SOb. No fevers. No cough. Denies pain. Taking po. Good uop. Objective: Vital Signs Temp Pulse Resp BP Pulse Ox 36.9 C 68 26 H 141/56 H 95 07/26/18 11:38 07/26/18 11:38 07/26/18 11:38 07/26/18 11:38 07/26/18 11:38 Laboratory Results 07/26/18 06:37 07/26/18 08:59 07/25/18 07/26/18 07/27/18 05:59 05:59 05:59 Intake Total 250 255 550 Output Total 1460 3750 Balance -1210 -3495 550 - Physical Exam Constitutional: no apparent distress Eyes: PERRL Ears, Nose, Mouth, Throat: moist mucous membranes Cardiovascular: regular rate and rhythym Respiratory: no respiratory distress, reduced air movement, other (diminished at bases) Gastrointestinal: normoactive bowel sounds, soft, non-tender abdomen Skin: warm Musculoskeletal: full muscle strength Neurologic: AAOx3 Psychiatric: interacting appropriately ICD10 Worksheet Patient Problems: Problems Problem Status Onset 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
--- NOTE | 2018-07-26 14:02 | PDINTPN ---
Com[employer] Progress Note Assessment/Plan: 77 F admitted 07/20 for hernia repair which was without complications, emergently transferred to ICU 07/25 after she develop acute respiratory failure with acidosis. Pain control had been with an epidural consisting of bupivacaine and fentanyl, though the fentanyl was dc'd 07/22. During am shift change, she was laid flat to boost her up in bed (she reported frequent N/V with this maneuver in the past) resulting in dry heaves and respiratory distress. She was given 20 mg lasix and sent for a CTA which ruled out a PE but showed atelectasis of the RLL with a moderate R>>L effusion. However, her respiratory status continued to deteriorate and an ABG revealed 7.02-13-19-21-88% on NRB. Bipsp was started and she was transferred to the ICU where a followup ABG was 7.24-48-89; followed by removal of bipap by RT (though not ordered). She received an additional 40 of lasix but after she recovered from the initial insult. Antibiotics were started but quickly dc'd since her PCT was low. Her BNP was 10,000; though she has had difficulty with RADHA/CKD with a functional solitary kidney following a remote thoracic/abdominal aortic aneurysm repair which occluded her kidney. * Acute respiratory failure with hypoxia and hypercapnia- the etiology of her failure is unclear to me, but may have been related to cephalad translocation of her bupivacaine when she was laid flat, since she recovered rapidly after that was dc'd. She could have had respiratory failure from fluid overload since her BNP was elevated, but her recovery did not correlate well with her lasix dosing, her CT did not show pulmonary edema and her echo was fairly unremarkable. Her low PCT ruled out bacterial PNA. She was not sleeping at the time of the event, so NATALY is also ruled out. The sudden onset/offset also makes a COPD exacerbation unlikely, and there was no emesis to support aspiration. She has remained stable since, though currently has en ET-CO2 detector in place. * COPD- as above- no clear evidence of exacerbation, so continue current inhalers and no systemic steroids. * RADHA/CKD- creatine appears to be about baseline so hesitant to give any additional diuretics. * s/p hernia repair - stable. Diet per surgery * NATALY- I suspect she has unrecognized NATALY and will need an outpatient sleep study. OK to use empiric CPAP qhs as needed, as long as she tolerates. Do not use sedation for CPAP compliance. Subjective: feels ok except chronic LBP. Abdomen pain controlled. Night staff reported apneic episodes so placed on CPAP and tolerated well. Objective: Vital Signs Temp Pulse Resp BP Pulse Ox 36.9 C 68 26 H 141/56 H 95 07/26/18 11:38 07/26/18 11:38 07/26/18 11:38 07/26/18 11:38 07/26/18 11:38 Laboratory Results 07/26/18 06:37 07/26/18 08:59 07/25/18 07/26/18 07/27/18 05:59 05:59 05:59 Intake Total 250 255 550 Output Total 1460 3750 Balance -1210 -5913 550 Physical Exam - Physical Exam General Appearance: WD/WN, alert, no apparent distress, obese EENT: PERRL/EOMI Neck: supple Respiratory: lungs clear, normal breath sounds, decreased breath sounds, No respiratory distress, No accessory muscle use Cardiac/Chest: regular rate, rhythm, No edema Abdomen: non-tender, soft, No distended Skin: normal color, warm/dry, No cyanosis Lymphatic: no adenopathy Extremities: No pedal edema Neuro/Psych: alert, normal mood/affect, oriented x 3 ICD10 Worksheet Patient Problems: Problems Problem Status Onset 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
[2018-07-26] MEDS ORDERED: POLYETHYLENE GLYCOL 3350 17 GM PKT PO SCH (15:00)
[2018-07-26] MEDS: POLYETHYLENE GLYCOL 3350 17 GM PKT PO SCH (15:44)
[2018-07-26] MEDS: FLUTICASONE IH SCH (19:56)
[2018-07-26] MEDS: SALMETEROL IH SCH (19:56)
[2018-07-26] MEDS: ACETAMINOPHEN 325 MG TAB PO PRN (20:23)
[2018-07-26] MEDS: ATORVASTATIN CALCIUM 20 MG TAB PO SCH (20:23)
--- NOTE | 2018-07-27 05:09 | CPEKG ---
Test Reason : OPEN Blood Pressure : / mmHG Vent. Rate : 113 BPM Atrial Rate : 113 BPM P-R Int : 160 ms QRS Dur : 147 ms QT Int : 338 ms P-R-T Axes : 034 072 -17 degrees QTc Int : 464 ms Sinus tachycardia Right bundle branch block Inferior Q waves Confirmed by Castro Chavez ([id number]) on 07/27/2018 5:08:51 AM Referred By: Confirmed By:Castro Chavez
[2018-07-27] MEDS: FLUoxetine 20 MG CAP PO SCH (08:39)
[2018-07-27] MEDS: CHOLECALCIFEROL VIT D3 1,000 UNITS TAB PO SCH (08:40)
[2018-07-27] MEDS: guaiFENesin 600 MG TAB.ER PO SCH ×2 (08:41→20:29)
[2018-07-27] MEDS: METOPROLOL TARTRATE 25 MG TAB PO SCH ×2 (08:42→20:28)
[2018-07-27] MEDS: POLYETHYLENE GLYCOL 3350 17 GM PKT PO SCH (08:45)
--- NOTE | 2018-07-27 10:04 | HOSPPROG ---
Hospitalist Progress Note Assessment/Plan: Acute hypoxemic and hypercarbic respiratory failure - Unclear what triggered this event, ?side effect from bupivacaine in epidural vs volume overload (had been on IVF's for several days) vs apnea causing acidosis. Now improved, on 1 LPM NC at rest. Initially had pH 7.09 with pCO2 78. Respiratory acidosis resolved s/p bipap. S/P IV Lasix given during STAT team call 07/25. CTA neg for PE, b/l pleural effusions noted. Echo showed EF 69%, mild MR, grade 1 diastolic dysfunction. BNP elevated. PCT low, thus doubt bacterial process. -atbx d/c'd, monitor -wean O2 as able Apneic episodes - has been on cpap at night here, may be able to go home with cpap, will review with RT -needs outpt sleep study Pleural effusions - R>L, may be related to recent surgery vs HF with asymmetric effusions -defer lasix today with rising Cr in setting of solitary kidney COPD - seems stable, no indication for steroids -cont home inhalers CKD - Baseline Cr 1.3-1.5. Cr down to 1.2 here --> 1.4 after Lasix. She has solitary kidney. -recheck bmp in am S/P abdominal wall hernia repair x2 - POD #4 -surgery following H/O thoracic aortic aneurysm repair Full code Dispo - cont inpt, dispo per primary surgical team Subjective: Pt feels better. She is ambulating in the halls. Denies CP or SOB. No pain. No fevers or cough. Good uop. Good oral intake. Objective: Vital Signs Temp Pulse Resp BP Pulse Ox 36.4 C 62 16 128/51 H 93 07/27/18 07:30 07/27/18 07:30 07/27/18 07:30 07/27/18 07:30 07/27/18 09:10 Laboratory Results 07/26/18 06:37 07/26/18 08:59 07/26/18 07/27/18 07/28/18 05:59 05:59 05:59 Intake Total 255 1230 Output Total 3750 590 300 Balance -3495 640 -300 - Physical Exam Constitutional: no apparent distress Eyes: PERRL Ears, Nose, Mouth, Throat: moist mucous membranes Cardiovascular: regular rate and rhythym Respiratory: no respiratory distress, other (diminished at bases) Gastrointestinal: normoactive bowel sounds, soft, non-tender abdomen Skin: warm Musculoskeletal: full muscle strength Neurologic: AAOx3 Psychiatric: interacting appropriately ICD10 Worksheet Patient Problems: Problems Problem Status Onset 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
--- NOTE | 2018-07-27 10:17 | SOAPPROG ---
SOAP Progress Note Assessment/Plan: Assessment/Plan: 77 Y F s/p ventral hernia repairs x 2. POD#6. Complex history of thoracic aneurysm repair c infections requiring wound vacs. Thoracic epidural removed. Pain controlled with tylenol. Single kidney. Cr 1.4 yesterday. Respiratory failure requiring stat team response. +pleural effusion, atelectasis. Much improved. On nasal canula now. May need cpap for home and will need outpatient sleep study. CTA negative for PE. Appreciate medicine management. D/c upper COOKIE drain. Continue PT/OT. Seen with Dr. Bergman. Dispo: possibly in next two days pending course. Will likely need some arrangements for O2/CPAP. S: feeling much better. "sore." Tolerating diet. +flatus. O: sitting oob in chair. 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
[2018-07-27] MEDS: HEPARIN 5,000 UNIT/0.5 ML INJ SC SCH ×2 (14:11→20:28)
[2018-07-27] MEDS: ACETAMINOPHEN 325 MG TAB PO PRN (15:30)
--- NOTE | 2018-07-27 15:59 | ASMTCMCOM ---
CM Note CM Note Notes: 07/27/2018 Case Management Note Discussed with MD this morning. PT recommending home with assistance from spouse. Anticipating d/c possibly mid week. Case Management d/c poc: home with family support and follow up as directed. Case Management to follow. Date Signed: 07/27/2018 03:59 PM Electronically Signed By:Shanita Carson RN
[2018-07-27] MEDS: ATORVASTATIN CALCIUM 20 MG TAB PO SCH (20:28)
[2018-07-27] MEDS: SALMETEROL IH SCH (20:29)
[2018-07-27] MEDS: FLUTICASONE IH SCH (20:29)
[2018-07-28] MEDS: HEPARIN 5,000 UNIT/0.5 ML INJ SC SCH ×2 (05:20→15:00)
[2018-07-28] MEDS ORDERED: BISACODYL 10 MG SUPP PR ONE (08:59)
[2018-07-28] MEDS: FLUoxetine 20 MG CAP PO SCH (09:03)
[2018-07-28] MEDS: CHOLECALCIFEROL VIT D3 1,000 UNITS TAB PO SCH (09:03)
[2018-07-28] MEDS: METOPROLOL TARTRATE 25 MG TAB PO SCH (09:03)
[2018-07-28] MEDS: guaiFENesin 600 MG TAB.ER PO SCH (09:04)
[2018-07-28] MEDS: POLYETHYLENE GLYCOL 3350 17 GM PKT PO SCH (09:06)
--- NOTE | 2018-07-28 09:58 | PDHOMEO2F ---
Home Oxygen Face to Face Home Orders: I certify that a physician or a nurse practitioner or physician's account assistant has had a [id number] encounter with this patient on the date of this order due to the diagnosis listed, which relates to the primary reason the patient requires home oxygen. Alternative treatments have been tried, or considered, and deemed ineffective. It is anticipated that supplemental oxygen will result in improvement with treatment. Home oxygen qualifying diagnosis: sleep apnea SpO2 on room air (%): 87 Frequency of home oxygen needed: continuous Home oxygen liters per minute: 2 Home oxygen delivery device: nasal cannula Concentrator: Yes E-tanks for mobility and back up: Yes If ordering portable O2, is the patient mobile in the home?: Yes I certify that, based on these findings, the home oxygen is medically necessary for this patient for the following length of time. Length of time home oxygen needed: 99 years
--- NOTE | 2018-07-28 10:00 | SOAPPROG ---
SOAP Progress Note Assessment/Plan: Assessment/Plan: 77 Y F s/p ventral hernia repairs x 2. POD#7. Complex history of thoracic aneurysm repair c infections requiring wound vacs. Thoracic epidural removed. Pain controlled with tylenol. Single kidney. Cr 1.1 today. Respiratory failure requiring stat team response. +pleural effusion, atelectasis. CTA negative for PE. Much improved. On nasal canula now. Discussed with medicine. CPAP and O2 for home ordered with medicine and RT. Will need outpatient sleep study--referral to Dr. Hawkins. Appreciate medicine management. D/c remaining drain. Seen with Dr. Bergman. D/c today. Arrangements for O2/CPAP made per medicine and RT. S: feeling much better. "sore." Tolerating diet. eager to go home. O: sitting oob in chair. no wob rrr abd soft, inc's cdi, drain serosanguinous. 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
--- NOTE | 2018-07-28 13:01 | PDHOMEO2F ---
Home Oxygen Face to Face Home Orders: I certify that a physician or a nurse practitioner or physician's assistant general manager has had a jorz-hb-futn encounter with this patient on the date of this order due to the diagnosis listed, which relates to the primary reason the patient requires home oxygen. Alternative treatments have been tried, or considered, and deemed ineffective. It is anticipated that supplemental oxygen will result in improvement with treatment. Home oxygen qualifying diagnosis: COPD SpO2 on room air (%): 87 Frequency of home oxygen needed: continuous Home oxygen liters per minute: 2 LPM Home oxygen delivery device: nasal cannula Concentrator: Yes E-tanks for mobility and back up: Yes If ordering portable O2, is the patient mobile in the home?: Yes I certify that, based on these findings, the home oxygen is medically necessary for this patient for the following length of time. Length of time home oxygen needed: 99 years
--- NOTE | 2018-07-28 13:08 | HOSPPROG ---
Hospitalist Progress Note Assessment/Plan: Acute hypoxemic and hypercarbic respiratory failure - Unclear what triggered this event, ?side effect from bupivacaine in epidural vs volume overload (had been on IVF's for several days) vs apnea causing acidosis. Now improved, on 2 LPM NC at rest. Initially had pH 7.09 with pCO2 78. Respiratory acidosis resolved s/p bipap. S/P IV Lasix given during STAT team call 07/25. CTA neg for PE, b/l pleural effusions noted. Echo showed EF 69%, mild MR, grade 1 diastolic dysfunction. BNP elevated. PCT low, thus doubt bacterial process. -will require home O2 and bipap until outpt sleep study Apneic episodes - has been on cpap at night here, recommend home bipap to prevent recurrent acidosis -home bipap -needs outpt sleep study, referred to pulmonology Pleural effusions - R>L, may be related to recent surgery COPD - seems stable, no indication for steroids -cont home inhalers, bipap as above to prevent recurrent acidosis CKD - Baseline Cr 1.3-1.5. Cr down to 1.2 here --> 1.4 after Lasix. She has solitary kidney. -repeat BMP with Cr down to 1.1 S/P abdominal wall hernia repair x2 - POD #5 -surgery following, will dc today H/O thoracic aortic aneurysm repair Full code Dispo - cont inpt, dispo per primary surgical team today Note: pt has refused BIPAP. She understands the risk of given her acute respiratory acidosis and subsequent respiratory failure in the hospital requiring emergent BIPAP. We have arranged home BIPAP for her safety, but she is apparently refusing it despite the risk of apnea, acidosis and . 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
--- NOTE | 2018-07-28 13:10 | PDHOMEO2F ---
Home Oxygen Face to Face Home Orders: I certify that a physician or a nurse practitioner or physician's physical therapist assistant has had a czsk-sa-ybud encounter with this patient on the date of this order due to the diagnosis listed, which relates to the primary reason the patient requires home oxygen. Alternative treatments have been tried, or considered, and deemed ineffective. It is anticipated that supplemental oxygen will result in improvement with treatment. Home oxygen qualifying diagnosis: COPD with chronic respiratory acidosis SpO2 on room air (%): 87 Frequency of home oxygen needed: continuous Home oxygen liters per minute: 2 LPM Home oxygen delivery device: nasal cannula Concentrator: Yes E-tanks for mobility and back up: Yes If ordering portable O2, is the patient mobile in the home?: Yes I certify that, based on these findings, the home oxygen is medically necessary for this patient for the following length of time. Length of time home oxygen needed: 99 years
--- NOTE | 2018-07-28 15:02 | ASMTLACE ---
FRANCOISE Length of stay for Answers: 7-13 days current admission Acuity / Level of Answers: Yes Care: Did the patient have an inpatient admission? Comorbidities - select Answers: Chronic pulmonary disease all that apply Other Notes: HTN, ventral hernia # of Emergency department Answers: 0 visits in the last 6 months Social determinants Answers: Mental health diagnosis (anxiety, depression, pers onality disorders, etc.) Score: 14 Date Signed: 07/28/2018 03:02 PM Electronically Signed By:Faby Trujillo
--- NOTE | 2018-07-28 15:04 | ASMTDCNOTE ---
Case Management Discharge Discharge Order Complete? Answers: Yes Patient to Obtain Answers: via Family Medications Transportation Arranged Answers: Family/Friends Transport will Pick (Date 07/28/2018 12:00 AM & Time) Family Notified Answers: Yes Notes: in the room Discharge Comments Notes: Spoke with pt and in the room as well as with RN. Pt to receive [facility] PT/OT and they have accepted. No further CM needs noted at this time. Date Signed: 07/28/2018 03:03 PM Electronically Signed By:Faby Trujillo
--- NOTE | 2018-07-28 15:10 | PDIAF ---
- Diagnosis Diagnosis: hernia repair, respiratory acidosis Code Status: Full Code - Medication Management Discharge Medications: electronically signed and located in the Home Medication List. - Orders Services needed: Home Care, Registered Nurse, Physical Therapy, Occupational Therapy Home Care Face to Face: I certify that this patient was under my care and that I had the required kaim-fe-dzlq encounter meeting the encounter requirements on the discharge day. My findings support the fact that the patient is homebound as defined in Home Care Face to Face Continued: CMS Chapter 7 Medicare Benefits Manual 30.1.1 , The condition of the patient is such that there exists a normal inability to leave home and consequently, leaving home would require a considerable and taxing effort. Diet Recommendation: no restrictions on diet Diet Texture: Regular Texture Diet Additional Instructions: You will be discharged with home BIPAP. Follow up with Dr. Hawkins (body sander ) for outpatient sleep study. You may leave your incisions open to air. You will need to change the dressing at your drain site daily or more often if they saturate with drainage. It is ok to shower with drain sites and incisions open to air. Avoid submerging under water like in a bath tub or pool. No lifting over 15 lbs. - Follow Up Care Current Providers and Referrals: Kali Jackman MD [Medical Doctor] - follow up in 1 week Toney Hawkins MD [Medical Doctor] - Moses Fowler MD [Primary Care Provider] -
[2018-07-28 15:17] VITALS: BP 160/76
--- NOTE | 2018-07-28 15:26 | ASDISCHSUM ---
Discharge Information Plan Status:Home with Home Health Medically Cleared to Leave:07/27/2018 Discharge Date:07/27/2018 CM D/C Disposition:Home Health Service ADT D/C Disposition:Home, Routine, Self-Care Projected Discharge Date:07/28/2018 11:00 AM Transportation at D/C:Family Discharge Delay Reason: Follow-Up Date:07/28/2018 11:00 AM Discharge Slot: Final Diagnosis:ventral hernia Placement Information Referral Type:*Home Health Care Services Referral ID:[id number] Provider Name:[facility] Address 1:[address] [place] [address] Address 2: City:[place]: State:[place] Patient Contact Information Contact Name:OVIDIO Relationship: Address:[address] [place] [address] City:[place] Phone: State/Zip Code:[place] [address] Email: Financial Information Financial Class:Medicare Primary Plan Desc:MEDICARE INPATIENT Primary Plan Number:[id number] Secondary Plan Desc:MOISÉSA Secondary Plan Number:[id number] Assessment Information LACE LACE Length of stay for Answers: 7-13 days current admission Acuity / Level of Answers: Yes Care: Did the patient have an inpatient admission? Comorbidities - select Answers: Chronic pulmonary disease all that apply Other Notes: HTN, ventral hernia # of Emergency department Answers: 0 visits in the last 6 months Social determinants Answers: Mental health diagnosis (anxiety, depression, pers onality disorders, etc.) Score: 14 Date Signed: 07/28/2018 03:02 PM Electronically Signed By:Faby Trujillo [facility] CM Progress Note CM Note CM Note Notes: Pt admitted for scheduled hernia surgery, pt normally independent and goes to yoga. She does have some balance issues at baseline. Pt lives at home w/her , PT/OT to arya. DC Plan: TBD Date Signed: 07/22/2018 04:12 PM Electronically Signed By:Dana Cr RN [facility] CM Progress Note CM Note CM Note Notes: Reviewed therapies, pt cleared for home by PT and OT. Anticipate she will dc w/support of when medically stable. CM available for any changes. DC Plan: Independent Date Signed: 07/23/2018 03:03 PM Electronically Signed By:Dana Cr RN [facility] CM Progress Note CM Note CM Note Notes: Patient had a STAT team call this am and was transferred to the ICU. Pt lives at home with her , prior to transfer, CM anticipated that pt would dc home independent. I believe PT will see pt again, for reeval. DC Plan: TBD Date Signed: 07/25/2018 03:57 PM Electronically Signed By:Dana Cr RN [facility] CM Progress Note CM Note CM Note Notes: 07/27/2018 Case Management Note Discussed with this morning. PT recommending home with assistance from spouse. Anticipating d/c possibly mid week. Case Management d/c poc: home with family support and follow up as directed. Case Management to follow. Date Signed: 07/27/2018 03:59 PM Electronically Signed By:Shanita Carson RN Case Management Discharge Plan Note Case Management Discharge Discharge Order Complete? Answers: Yes Patient to Obtain Answers: via Family Medications Transportation Arranged Answers: Family/Friends Transport will Pick (Date 07/28/2018 12:00 AM & Time) Family Notified Answers: Yes Notes: in the room Discharge Comments Notes: Spoke with pt and in the room as well as with RN. Pt to receive [facility] PT/OT and they have accepted. No further CM needs noted at this time. Date Signed: 07/28/2018 03:03 PM Electronically Signed By:Faby Trujillo Intervention Information Intervention Type:*Incorrect Registration Date of Service:07/21/2018 05:05 PM Patient Type:Inpatient Staff Member:Alice Alfred Hours: Discipline: Severity: Comment:
== END 2018-07-28 17:49 | disposition home health service (06) | DRG 353 ==
LOC: F3N 07:44 → EDSTATUS 09:15 → OBSVTOIN 12:59 → F3E 13:28 → F2N 07-25 09:27 → F3E 07-27 16:17
PROVIDERS: ADMIT Surgery; ATTEND Surgery
PROC: 0WUF0JZ Supplement Abdominal Wall with Synthetic Substitute, Open Approach (ICD-10-PCS; principal; 2018-07-21 09:15)
DX: K43.9 Ventral hernia without obstruction or gangrene (principal); J96.01 Acute respiratory failure with hypoxia; J96.02 Acute respiratory failure with hypercapnia; Q60.0 Renal agenesis, unilateral; J90 Pleural effusion, not elsewhere classified; N17.9 Acute kidney failure, unspecified; J44.9 Chronic obstructive pulmonary disease, unspecified; I12.9 Hypertensive chronic kidney disease with stage 1 through stage 4 chronic kidney disease, or unspecified chronic kidney disease; N18.9 Chronic kidney disease, unspecified; G47.33 Obstructive sleep apnea (adult) (pediatric); Z72.0 Tobacco use
CPT/HCPCS: 97116-GP; 97162-GP; 97166-GO; 97168-GO; 97530-GP; 97535-GO; C1781; J0690; J1100; J1200; J1644; J1940; J2250; J2405; J2543; J2550; J2704; J3010; J7613; Q9967